=== PATIENT | male | born 1995 | race Caucasian/White ===

== ENCOUNTER → 2016-08-25 | Outpatient (CLI) | payer BC, OTHER ==
--- NOTE | 2016-08-25 20:08 | DIAGNOSTIC IMAGING REPORT ---
MRI OF THE LEFT THIGH WITHOUT CONTRAST CLINICAL HISTORY: Left quadriceps strain. Previous injury. COMPARISON STUDY: MRI of the left thigh May 18, 2015 and MRI of the left knee June 19, 2015. TECHNIQUE: Utilizing a 1.5 Ania magnet and dedicated coil, multiplanar, multi echo imaging of the left thigh was performed without intravenous contrast. FINDINGS: There is an area of increased T2 signal within the lateral aspect of the mid left rectus femoris muscle. There is a small amount of perifascial fluid within the adjacent soft tissues. No additional sites of muscular edema are present. Marrow signal within the left femur is normal. Visualized portions of the left hemipelvis are normal. The area of edema with hematoma shown on exam of May 18, 2015 has resolved. Findings consistent with a left ACL reconstruction are noted. These are suboptimally assessed on this examination due to diminished [id number]. The integrity of the graft is difficult to assess on this exam but appears intact on the coronal STIR sequence. IMPRESSION: Mild intramuscular edema within the lateral aspect of the mid left rectus femoris with associated perifascial fluid consistent with a grade I muscular strain. Electronically signed by: Tino Martinez M.D. 08/25/2016 8:07 PM Dictated Date/Time: 08/25/2016 5:27 PM
== END | disposition home or self-care (01) ==
LOC: C.MRIBC 15:16
PROVIDERS: ATTEND Internal Medicine
DX: S76.112A Strain of left quadriceps muscle, fascia and tendon, initial encounter (principal); X58.XXXA Exposure to other specified factors, initial encounter

== ENCOUNTER → 2017-01-19 | Outpatient (CLI) | payer BC, OTHER ==
--- NOTE | 2017-01-19 13:51 | DIAGNOSTIC IMAGING REPORT ---
L KNEE 4 OR MORE CLINICAL HISTORY: 21 years-old Male presenting with LEFT KNEE PAIN AND SWELLING S/P ACL RECONSTRUCTION. TECHNIQUE: Frontal, lateral, tunnel, and sunrise views of the left knee were obtained. COMPARISON: 06/19/2015. FINDINGS: There has been interval revision of the anterior cruciate ligament repair with removal of the femoral anchor. A surgical tack device noted along the lateral distal femoral metaphysis. Surgical fixation screw again noted along the medial proximal tibial metaphysis. No acute fracture or malalignment. Knee joint effusion likely present. No patellar subluxation. No significant degenerative change. IMPRESSION: Postsurgical changes of ACL revision. Knee joint effusion. Electronically signed by: Brian Marcos M.D. 01/19/2017 1:50 PM Dictated Date/Time: 01/19/2017 1:47 PM
== END | disposition home or self-care (01) ==
LOC: C.RDSM 13:12
PROVIDERS: ATTEND Internal Medicine
DX: M25.562 Pain in left knee (principal)

== ENCOUNTER → 2017-06-01 | Outpatient (CLI) | payer BC, OTHER | END | disposition home or self-care (01) | LOC: C.RDSM 19:03 | PROVIDERS: ATTEND Physical Medicine & Rehabilitation Sports Medicine | DX: S89.92XA Unspecified injury of left lower leg, initial encounter (principal); X58.XXXA Exposure to other specified factors, initial encounter ==

== ENCOUNTER → 2017-06-02 | Outpatient (CLI) | payer BC, OTHER ==
--- NOTE | 2017-06-02 14:48 | DIAGNOSTIC IMAGING REPORT ---
L LOWER EXT JOINT WITHOUT CLINICAL HISTORY: 22 years-old Male presenting with L KNEE INJURY, left knee pain, prior ACL symptoms. TECHNIQUE: Multisequence, multiplanar MR imaging of the left knee was performed without the use of intravenous contrast. IV contrast: None. COMPARISON: 06/19/2015. FINDINGS: Localizer images: None available. Postsurgical changes of anterior cruciate ligament graft repair. No bony edema or fluid associated with the femoral anchor or tibial tunnel. The graft appears intact. No bony edema. Articular cartilage thinning in the mid weightbearing portion of the lateral femoral condyle. No other evidence of articular cartilage abnormality. Medial and lateral meniscus intact. Posterior cruciate ligament intact. Medial collateral ligament with mild superficial and deep edema suggesting grade 1 sprain. This is similar to prior. Lateral collateral ligament including the biceps femoris tendon, fibular collateral ligament, popliteus tendon, and iliotibial band intact. Quadriceps and patellar tendons intact. No patellar subluxation. Medial and lateral patellar retinacula intact. Small knee joint effusion. Trace popliteal cyst. Normal muscle bulk and muscle signal intensity. IMPRESSION: 1. Intact anterior cruciate ligament graft status post repair. 2. Articular cartilage thinning in the mid weightbearing portion of the lateral femoral condyle. 3. Grade 1 sprain of the medial collateral ligament, unchanged. 4. No acute findings. Electronically signed by: Brian Marcos M.D. 06/02/2017 2:46 PM Dictated Date/Time: 06/02/2017 2:38 PM
== END | disposition home or self-care (01) ==
LOC: C.MRIBC 13:18
PROVIDERS: ATTEND Physical Medicine & Rehabilitation Sports Medicine
DX: S83.512D Sprain of anterior cruciate ligament of left knee, subsequent encounter (principal); X58.XXXD Exposure to other specified factors, subsequent encounter; S83.412A Sprain of medial collateral ligament of left knee, initial encounter; X58.XXXA Exposure to other specified factors, initial encounter

== ENCOUNTER → 2017-07-14 | Day surgery (SDC) | payer BC, OTHER ==
[2017-07-07 11:50] VITALS: Ht 180.3 cm; Wt 84.5 kg
[~2017-07-14] VITALS: Ht 180.3 cm; Wt 84.5 kg
[~2017-07-14] MED LIST: BUPIVACAINE 0.5 % 5 MG/1 ML MPF 30ML VIAL ONE; CEFAZOLIN 2000MG IV PUSH 15 ML IV SCH; DEXAMETHASONE SOD INJ 4 MG/ML VIAL ONE; FENTANYL CITRATE INJ 50 MCG/1 ML 2 ML VIAL ONE; HYDROCODONE/ACETAMIN 5/325MG TAB ONE; HYDROCODONE/ACETAMIN 5/325MG TAB PO PRN; KETOROLAC TROMETHAMINE 30 MG/ML VIAL ONE; LACTATED RINGER'S 1000ML 1,000 ML IV SCH; LIDOCAINE HCL 2% 2 ML VIAL (20MG/ML) ONE; MIDAZOLAM HCL 1 MG/ML 2ML VIAL ONE; MoRPHine SULFATE PF 1 MG/ML 10 ML AMP/VIAL ONE; ONDANSETRON INJ 2 MG/ML 2 ML VIAL IV PRN; ONDANSETRON INJ 2 MG/ML 2 ML VIAL ONE; PROPOFOL IV EMULSION 10 MG/ML 20 ML VIAL IV ONE; SODIUM CHLORIDE 0.9% 1000ML 1,000 ML IV SCH
--- NOTE | 2017-07-14 06:45 | History & Physical Bridge Note ---
H&P Re-Evaluation Bridge Note: I have examined the patient, reviewed the History & Physical and in the interval since the performance of the History & Physical I have noted the following changes of clinical significance: consent obtained.No changes noted
--- NOTE | 2017-07-14 06:46 | Discharge Instructions ---
Discharge Instructions Date of Service Jul 14, 2017. Visit Reason for Visit: Left Knee Medial Meniscus Tear Discharge Discharge Diagnosis / Problem: same Discharge Goals Goal(s): Decrease discomfort, Improve function Medications Stopped Medications Name(s): na Restart Stopped Medication(s): use all scripts as directed Activity Recommendations Activity Limitations: as noted below Lifting Limitations: until after follow-up appointment Exercise/Sports Limitations: until after follow-up appointment May Resume Sexual Activity: when tolerated Shower/Bathe: keep incision dry Weightbearing Status: Left weightbearing (as tolerated) Anesthesia . Post Anesthesia Instructions: If you have had General Anesthesia or IV Sedation: * Do not drive today. * Resume driving when surgeon permits. * Do not make important decisions or sign legal documents today. * Call surgeon for: 1. Temperature elevations greater than 101 degrees F. 2. Uncontrollable pain. 3. Excessive bleeding. 4. Persistent nausea and vomiting. 5. Medication intolerance (nausea, vomiting or rash). * For nausea and vomiting use only clear liquids such as: tea, soda, bouillon until nausea subsides, then gradually increase diet as tolerated. * If you have any concerns or questions, call your surgeon's office. If physician is unavailable and it is an emergency, call 911 or go to the nearest emergency room. . Instructions / Follow-Up Instructions / Follow-Up DIET: * Resume previous diet. MEDICATIONS: * Please take your prescriptions as instructed at your pre-op appointment and/ or see medication discharge instructions listed above. * If concerns develop, call your physician's office at . SPECIAL CARE INSTRUCTIONS: * Ice/Elevate as instructed. * Keep dressing clean, dry, intact. * Your surgical extremity may be discolored due to prepping agents used on the skin. A bluish-green tint is a normal variant and should not cause alarm. Call your doctor at [phone] if: * Temperature above 101 degrees * Pain not relieved by pain medicine ordered * There is increased drainage or redness from any incision * You have any unanswered questions, problems or concerns. FOLLOW UP VISIT: * If not already scheduled, please call the office at to schedule a follow-up appointment. Diet Recommendations Recommended Home Diet: resume previous diet Procedures Procedures Performed: see op note Pending Studies Studies pending at discharge: no Medical Emergencies . Who to Call and When: Medical Emergencies: If at any time you feel your situation is an emergency, please call 911 immediately. . Non-Emergent Contact Non-Emergency issues call your: Specialist Call Non-Emergent contact if: wound has increased drainage, wound has increased redness, wound has increased pain . . "Provider Documentation" section prepared by Marbin Cordova. .
--- NOTE | 2017-07-14 07:44 | [facility] Post Operative Brief Note ---
Immediate Operative Summary Operative Date Jul 14, 2017. Pre-Operative Diagnosis Left Knee Medial Meniscal Tear Post-Operative Diagnosis Same Procedure(s) Performed Left Knee Arthroscopy With Medial Meniscal Repair Surgeon Dr. Cordova Die Sizer Surgeon(s) LUIS ALBERTO Daniels, Fellow Estimated Blood Loss Trace Findings Consistent with Post-Op Diagnosis Fluids (cc crystalloids) 1000cc Specimens None Drains None Anesthesia Type General Complication(s) none Disposition Accompanied Pt To Recovery: no Disposition: Recovery Room / PACU
--- NOTE | 2017-07-14 08:04 | OPERATIVE REPORT ---
DATE OF OPERATION: 07/14/2017 SURGEON: Marbin Cordova MD. ELECTRONIC REPAIR TROUBLESHOOTER: Maryanne. SECOND ELECTRONIC REPAIR TROUBLESHOOTER: Ivan Strickland PA-C. PREOPERATIVE DIAGNOSIS: Peripheral medial meniscus tear. POSTOPERATIVE DIAGNOSIS: Same. OPERATION PERFORMED: Trephination, rasping and repair all-inside technique medial meniscus tear with FasT-Fix. PERIOPERATIVE SITUATION: Medically cleared male with a history of having injured his knee multiple times in the past, had ACL that re-tore and had it revised, recently had an injury with a loading valgus twisting injury where his graft was intact but had developed medial pain. He had developed over time some intermittent catching sensations. Physical exam, x-ray and MRI scan are consistent with medial meniscus peripheral tear. Options were discussed with the patient including meniscectomy versus repair. Due to his young age, obviously repair would be ideal to try to protect the longevity of his cartilage. He understands the risks and consequence of the potential retear as well. DESCRIPTION OF THE PROCEDURE: The patient appropriately identified, site verified, consent verified, 2 grams of Ancef confirmed as being given. The left lower extremity was examined revealing stable Arlye, pivot shift, anterior drawer test. He had full range of motion. He had scant effusion. He was then sterilely injected with 20 mL of 0.5% Marcaine with epinephrine and 5 mg Duramorph for postop pain control. The knee was then prepped and draped in usual routine fashion. Inframedial portal was then made using arthroscopic control and lateral portal made. Inspection of the joint revealed relatively healthy articular surfaces of all 3 compartments. Lateral meniscus was normal. The ACL graft was healthy and the medial meniscus was completely unstable with a red-white and red-red tear on the posterior half. This was then trephinated not only due to improve vascular channel but also try to decrease some of his tension as MCL of his knee was very tight. This allowed good visualization, but again challenging posteriorly. Using the scope medially, three sutures were placed and then using the scope laterally, additional suture was placed. They were combined vertical and horizontal mattress stitches with excellent purchase in all 4 stitches. The meniscus was quite stable. The procedure was then terminated. All instruments and fluid removed. The portals closed with 4-0 nylon, dressed with Xeroform, 4 x 4 gauze, sterile Webril, ABD pads and a range of motion brace locked at 0 degrees. He will be weightbearing as tolerated. We will keep his knee brace locked straight at all times. No motion for 2 weeks. DVT prophylaxis with aspirin. I attest to the content of the Intraoperative Record and any orders documented therein. Any exception s are noted below.
--- NOTE | 2017-07-14 08:56 | Anesthesia Progress Nt - [facility] ---
Anesthesia Post Op Note Date & Time Jul 14, 2017 at 08:55 Vital Signs Pain Intensity: 3 Vital Signs Past 12 Hours Date Time Temp Pulse Resp B/P (MAP) Pulse Ox O2 Delivery O2 Flow Rate FiO2 07/14/17 08:35 121/82 07/14/17 08:33 36.3 99 Room Air 07/14/17 08:31 67 12 07/14/17 08:31 66 12 97 07/14/17 08:30 128/82 07/14/17 08:26 70 15 99 07/14/17 08:26 70 15 07/14/17 08:25 127/76 07/14/17 08:21 55 11 100 07/14/17 08:21 54 11 07/14/17 08:20 125/74 07/14/17 08:17 58 16 100 07/14/17 08:17 57 16 07/14/17 08:15 113/70 07/14/17 08:12 50 18 100 07/14/17 08:12 50 18 07/14/17 08:10 117/65 07/14/17 08:07 50 18 07/14/17 08:07 50 18 100 07/14/17 08:05 116/73 07/14/17 08:02 52 18 07/14/17 08:02 52 18 99 07/14/17 08:00 116/69 07/14/17 07:58 119/77 07/14/17 07:57 56 07/14/17 07:57 56 96 07/14/17 07:52 36.6 53 12 119/77 100 Diffusion Mask 5 07/14/17 06:27 36.7 59 16 144/82 (102) 96 Room Air Notes Mental Status: alert / awake / arousable, participated in evaluation Pt Amnestic to Procedure: Yes Nausea / Vomiting: adequately controlled Pain: adequately controlled Airway Patency, RR, SpO2: stable & adequate BP & HR: stable & adequate Hydration State: stable & adequate Anesthetic Complications: no major complications apparent
[2017-07-14 09:14] VITALS: BP 131/82; PULSE 55; TEMP 36.5; O2SAT 100
--- NOTE | 2017-07-14 12:29 | [facility] Operative Report ---
Operative Report Operative Date Jul 14, 2017. Pre-Operative Diagnosis Left Knee Medial Meniscal Tear Post-Operative Diagnosis Left knee same Procedure(s) Performed Left Knee Arthroscopy With Medial Meniscal Repair Surgeon Dr. Cordova Lift Operator Surgeon(s) LUIS ALBERTO Daniels, Fellow Estimated Blood Loss Trace Findings Medial meniscal tear left knee Fluids 1000cc Specimens None Drains None Anesthesia Type General Complication(s) none Disposition no Recovery Room / PACU Indications This 22-year-old white male presented to the office with complaints of medial left knee pain after injuring himself while playing soccer. Pain was worse with activity. X-ray and MRI were obtained. He elected to proceed with surgical intervention after being educated about potential risks and outcomes. Description of Procedure Patient was taken to the operating room where he was given general anesthesia. He was prepped and draped in usual sterile fashion. Please see Dr. Cordova's operative report for specifics of the procedure. I was present for the entire case from initial patient positioning through final wound closure. Assistance was provided in arthroscopy, anchor placement, and final wound closure. Patient was taken to the recovery room in satisfactory condition. I attest to the content of the Intraoperative Record and any orders documented therein. Any exceptions are noted below.
== END | disposition home or self-care (01) ==
LOC: X.SURG 06:16
PROVIDERS: ATTEND Physical Medicine & Rehabilitation Sports Medicine
DX: S83.222A Peripheral tear of medial meniscus, current injury, left knee, initial encounter (principal); X58.XXXA Exposure to other specified factors, initial encounter; Y93.66 Activity, soccer; Z98.890 Other specified postprocedural states; Z98.818 Other dental procedure status